=== PATIENT | female | born 1965 | race Caucasian/White ===

== ENCOUNTER 2025-07-11 11:22 | Emergency (ER) | payer BC, SELFPAY ==
[2025-07-11 11:25] VITALS: BP 141/84; BMI 32.6
--- NOTE | 2025-07-11 12:18 | ED.GENMED ---
History of Present Illness
General
Chief Complaint: Musculo-Skeletal Complaint
Source: patient
Time Seen by Provider: 07/11/25 11:25
History of Present Illness
History of Present Illness:
60-year-old female with no reported significant past medical history presenting to the ER from home after she was lifting heavier boxes and carrying them down the stairs, while carrying them down the stairs felt a popping sensation in her left
distal thigh/knee area and difficulty putting weight on the left leg prompting her to contact EMS to bring her to the ER. Patient declining anything for pain per EMS and is currently declining anything here as well. No focal weakness or numbness,
color changes or direct trauma to the area. She denies any falls. Secondary concern of intermittent pain in both legs over the last 2 years with intermittent bruising, has not had any workup for this. Patient notes some social factors including
the recent passing of her father, currently taking care of her mother and has had her brother and spouse over the last few years as well, currently lives alone.
Past History
Past History
ED Past Medical History: None
ED Past Surgical History: None
Social History
Tobacco: Non-smoker
Alcohol: None
Drug: None
Personal:
Living: alone
Review of Systems
Review of Systems
All Other Systems: ROS reviewed and negative except as documented in HPI and ROS
Phy Exam
Physical Exam
Physical Exam:
GENERAL: Alert , in no apparent distress
EYE: conjunctiva clear
Head: Normocephalic atraumatic
NECK: Supple,
ENT: mmm.
LUNGS: no acute respiratory distress
NEUROLOGICAL: Alert and oriented
SKIN: Warm and dry, skin intact.
MUSCULOSKELETAL: LLE: No obvious deformity, erythema, edema, abrasions/lacerations. Older appearing bruise anteriorly over distal tibia with slight ttp. Full active and passive ROM of the LLE with slight discomfort with knee flexion/extension. No
focal ttp. Easily palpable pedal/tibial pulses. CR < 2 sec. Sensation grossly intact to light touch
PSYCH: Normal and appropriate interaction.
Scores
Heart Failure Risk
Heart Failure Risk Score: Not Applicable
Heart Score for Chest Pain Patients
STEMI patient?: Not applicable
Withdrawal Assessment of Alcohol
Withdrawal Assessment Completed?: Not applicable
Course
Orders/Labs/Results
Orders:
Orders
07/11/25 11:29
CR Knee - Left 4 Or More View* Urgent
Comment:
Reason For Exam: pain
Vital Signs
Initial and Last Documented VS:
Initial Vital Signs
Temp Pulse Resp BP Pulse Ox
98.4 F 69 16 141/84 100
07/11/25 11:25 07/11/25 11:25 07/11/25 11:25 07/11/25 11:25 07/11/25 11:25
Last Documented Vital Signs
Temp Pulse Resp BP Pulse Ox
98.4 F 64 16 138/79 98
07/11/25 11:25 07/11/25 12:26 07/11/25 12:26 07/11/25 12:26 07/11/25 12:26
MDM/Problems Addressed
Differential Diagnosis Includes:
Osteoarthritis
Tendinitis
Muscle strain
Sprain
Fracture
Dislocation
I do not have concern for septic joint
MDM/Problems Addressed:
60-year-old female presenting to the ER for evaluation of left knee pain that occurred while carrying heavy boxes down a set of stairs. No direct injury to the area. X-ray ordered. Patient declining anything for pain. Will likely need outpatient
orthopedics follow-up. Patient declining crutches or immobilization.
*Radiology
Radiology exam reviewed: preliminary read by ED provider (No acute fracture)
*Pulse Oximetry
SaO2: 100
Oxygen Mode of Delivery: Room air
Patient hypoxic: no
*Critical Care Note
Total Time (30-74mins, 75-104mins- exclusive of procedures): Not Applicable
Patient Management
Escalation/DeEscalation of care consider admission/obs:
Patient stable for discharge and outpatient management. Aware of return precautions to the ER.
ED Attending Note
-
Portions of this chart may have been created with voice recognition software.� Occasional wrong word or��sound alike� substitutions may have occurred due to the inherent limitations of voice recognition software.
Discharge Plan
Departure
Patient Disposition: Home (Routine Discharge)
Date of Disposition: 07/11/25
Time of Disposition: 12:18
Patient with high blood pressure during this ER visit?: Yes
Discharge Problem:
Pain in left leg
Instructions: Muscle Strain (DC)
Referrals:
Raymundo Mcmillan MD [Active, Orthopedics]
Rupert Obando, [Family Provider, Family Practice]
Domingo Kramer MD [Active, Orthopedics]
Interventions
Interventions:
*Risk Screen - Suicide Last Done: 07/11/25 11:30
*General Assessment Last Done: 07/11/25 11:30
*Neglect/Abuse Screening Last Done: 07/11/25 11:30
*ED- Fall Risk Assessment Last Done: 07/11/25 11:30
*ED COVID-19 Vaccine History Last Done: 07/11/25 11:30
*ED Influenza Vaccine History Last Done: 07/11/25 11:30
*Nursing Disposition Last Done: 07/11/25 12:26
ED-Musculoskeletal Assessment Last Done: 07/11/25 11:30
Discharge Date and Time
Discharge Date/Time: 07/11/25 12:32
Print Language: FRENCH
[2025-07-11 12:26] VITALS: BP 138/79
== END 2025-07-11 12:32 | disposition home or self-care (01) ==
LOC: EMR 11:22
PROVIDERS: EMERGENCY PHYSICIAN Emergency Medicine; FAMILY PHYSICIAN Family Medicine
DX: M79.605 Pain in left leg (principal); Z63.4 Disappearance and death of family member
CPT/HCPCS: 99283; 73564